=== PATIENT | female | born 1950 | race Caucasian/White ===

== ENCOUNTER → 2018-06-28 09:45 | Outpatient (CLI) | payer MEDICARE, SELFPAY ==
--- NOTE | 2018-06-28 09:45 | FLU_PTH ---
PATIENT: MAT KENYON [facility] U#:[id number] AGE/SX: 75/F ROOM: RE06/28/[address]: Dr. Lexi Garrido MD : 1950 BED: DIS: SPEC #: [id number] RECD: 06/29/18 11:32 STATUS: JERRY REQ #: [id number] PAWAN: 06/28/18 09:[address]: Lexi Garrido DEPT: CYTOLOGY RECD BY: Dov Gregory ENTERED: 06/29/18 11:33 SP TYPE: Fluid OTHR DR: Dr. Napoleon Huston DO Tissues: A - Thyroid gland, NOS B - Thyroid gland, NOS C - Thyroid gland, NOS D - Thyroid gland, NOS Procedures: Pap Stain (control) Special Stain Group II Surgery Specimen Level IV Cell Block Cytospin Fluid Cytology Other HEADER OPERATION: Ultrasound-guided fine needle aspiration bilateral thyroid PRE-OP DIAGNOSIS: Thyroid nodules TISSUE SUBMITTED: A - FNA right thyroid for cytology, B - FNA right thyroid 6 slides, C - FNA left thyroid for cytology, D - FNA left thyroid 8 slides DIAGNOSIS CYTOLOGY A. Right thyroid nodule fluid, FNA (cytospin and cell block): Rare benign follicular cells noted. B. Right thyroid nodule, FNA (smears): Consistent with benign follicular nodule. Adequate for evaluation. C. Left thyroid nodule fluid, FNA (cytospin and cell block): Consistent with benign follicular nodule with cystic changes. D. Left thyroid nodule, FNA (smears): Consistent with benign follicular nodule. Adequate for evaluation. SJ:chuy 06/30/18 COMMENT Correlation with clinical, radiologic findings and appropriate follow up are necessary. CYTOLOGY STUDY Slides are reviewed. CYTOLOGY GROSS A - Received is 100 ml of cloudy beige fluid labeled with the patient's name and and designated per the requisition as right thyroid. Submitted for cytology preparation including cell block. B - Received are six smears labeled with the patient's name and designated per the requisition as right thyroid. Submitted for staining. C - Received is 100 ml of cloudy brown fluid labeled with the patient's name and and designated per the requisition as left thyroid. Submitted for cytology preparation including cell block. D - Received are eight smears labeled with the patient's name and designated per the requisition as left thyroid. Submitted for staining. 06/29/18 TC:5 CPT: 09066 x2, 73845 x2, 85784 x2
== END ==
PROVIDERS: Family Provider Student in an Organized Health Care Education/Training Program; PCP Student in an Organized Health Care Education/Training Program; Referring Provider Surgery; Visit Provider Surgery
DX: E04.1 Nontoxic single thyroid nodule (principal)
CPT/HCPCS: 88108; 88161; 88305; 88313

== ENCOUNTER → 2018-08-06 13:00 | Outpatient (CLI) | payer MEDICARE, SELFPAY ==
[2018-07-15 13:16] VITALS: BMI 21.9
--- NOTE | 2018-08-06 13:01 | STEWCON_ITS ---
Reason For Study: DYSPNEA/SOB Stress Results Protocol: Juan Protocol Maximum Predicted HR: 150 bpm Target HR: 128 bpm % Maximum Predicted HR: 94 % DurationHeart Rate Stage (mm:ss) (bpm) BP Comment BASELINE 58 120/822CC DEFINITY STAGE 1 3:00 106 124/72 STAGE 2 3:00 141 130/722CC DEFINITY RECOVERY 72 110/78 Stress Duration: 6:00 mm:ss Maximum Stress HR: 141 bpm METS: 7 Baseline Echocardiogram Findings Stress Echo Wall motion Data Resting WM Intermediate WM Stress WM Resting Wall Motion Wall Motion Stress All segments Normal. Anterio-Basal: Hyperkinetic. Ejection Fraction 60 %. Lateral-Basal: Hyperkinetic. Posterior-Basal: Hyperkinetic. Infero-Basal: Hypokinetic. Basal inferoseptal: Hypokinetic. Basal anteroseptal: Hyperkinetic. Mid-Anterior : Hyperkinetic. Mid-Lateral : Hyperkinetic. Mid-Posterior: Hyperkinetic. Mid-Inferior: Hypokinetic. Mid-inferoseptal : Hyperkinetic. Mid-anteroseptal : Hyperkinetic. Anterior [place] : Hyperkinetic. Inferior [place] : Hyperkinetic. Lateral [place] : Hyperkinetic. Septall [place] : Hyperkinetic. Ejection Fraction 60 %. Stress Results Heart rate response: appropriate Blood pressure response: normal resting BP - appropriate response Arrhytmias: Rare PVC pretest, during exercise, and recovery Functional capacity: good Stopped secondary to: dyspnea; leg discomfort. EKG Data The baseline ECG displays normal sinus rhythm. Peak exercise ECG: NO OBVIOUS ECG CHANGES. Symptoms with Stress No c/o chest discomfort during exercise / recovery. Interpretation Summary The study was technically difficult. Contrast injection was performed. ABNORMAL (ADEQUATE) STRESS ECHOCARDIOGRAM Ordering Physician: Ricardo Saunders Referring Physician: Ricardo Saunders Performed By: Benji Dolan RCS
== END ==
PROVIDERS: Family Provider Student in an Organized Health Care Education/Training Program; PCP Student in an Organized Health Care Education/Training Program; Referring Provider Internal Medicine Cardiovascular Disease; Visit Provider Internal Medicine Cardiovascular Disease
DX: R06.02 Shortness of breath (principal); R94.31 Abnormal electrocardiogram [ECG] [EKG]
CPT/HCPCS: 93017; 93350; Q9957; A4216; C8928

== ENCOUNTER → 2018-08-19 12:24 | Outpatient (CLI) | payer MEDICARE, SELFPAY ==
[2018-07-15 13:16] VITALS: BMI 21.9
--- NOTE | 2018-08-19 12:26 | BI_ITS ---
MAMMOGRAPHY - BILATERAL SCREENING REASON FOR EXAM: Female, 68 years old. Routine annual screening examination. PERTINENT HISTORY: Non-contributory. Remote right excisional breast biopsy. TECHNIQUE: Digital bilateral breast tanesha (3D mammographic acquisition) in the CC and MLO projections. 2-D mediolateral oblique (MLO) and craniocaudad (CC) views of both breasts were obtained. CAD: Full Field Digital Mammography with Computer Added Detection was performed. COMPARISON: Comparison is made with prior study dated April 29, 2017 and April 22, 2016. FINDINGS: Breast Composition: There are scattered areas of fibroglandular density. There are no dominant masses or suspicious calcifications. No other significant abnormalities are identified. There has been no significant change since the prior study. BI/SCREENING MAMM (CAD), BILAT IMPRESSION: Stable bilateral screening mammogram. Yearly follow-up mammogram recommended. (A) ASSESSMENT CATEGORY: BIRADS Category 1: Negative. A letter regarding these results will be sent to the patient by the facility within 30 days. Approximately 10% of breast cancers are not detected by mammography. A normal mammogram should not delay biopsy of a clinically suspicious abnormality. [id number] Electronically Signed: Grant Bone MD at 14:14 EST Tel [phone], Service support ,
--- NOTE | 2018-08-19 12:29 | BD_ITS ---
STUDY: DUAL ENERGY X-RAY ABSORPTIOMETRY / DXA REASON FOR EXAM: Female, 68 years old. The patient is postmenopausal. Loss of height. TECHNIQUE: Bone Mineral Density (BMD) measurements of lumbar spine and bilateral hips were obtained. COMPARISON: Comparison is made with prior study dated November 24, 2013. FINDINGS: Lumbar Spine (L1-L4): g/cm2 (0.677) / T-score (-4.2) / Z-score (-2.5) Findings are suggestive of osteoporosis with a high fracture risk. Left Femur Total: g/cm2 (0.854) / T-score (-1.2) / Z-score (0.3) Left Femoral Neck: g/cm2 (0.757) / T-score (-2.0) / Z-score (-0.3) Right Femur Total: g/cm2 (0.795) / T-score (-1.7) / Z-score (-0.2) Right Femoral Neck: g/cm2 (0.755) / T-score (-2.0) / Z-score (-0.3) The T-Scores on the most recent prior examination were: Lumbar Spine (L1-L4): There has been improvement of bone density since the previous examination. Left Femur Total: which represents an improvement of 8.1%. Right Femur Total: which represents an improvement of 7.4%. BD/Dexa Bone Density Study IMPRESSION: The patient is considered osteoporotic as outlined below according to World Oniel Organization (WHO) criteria with a high fracture risk. There has been improvement of bone density since the previous examination. Reference Information: The T-score is the number of standard deviations above or below the standard which is normal for young adults at their peak bone mineral density. The World Health Organization (WHO) interprets the T-scores as follows: Above -1 Normal bone density Between -1 and -2.5 Osteopenia Equal to / or below -2.5 Osteoporosis As a practical clinical guideline, osteopenia may be graded as follows: Mild -1 through -1.5 Moderate -1.6 through -2.0 Severe -2.1 through -2.4 The Z-score is the number of standard deviations above or below age-matched controls. A Z-score of less than -1.5 would be considered abnormal. References: 1. NIH Osteoporosis and Related Bone Diseases http://www.osteo.org 2. International Society for Clinical Densitometry http://www.iscd.org 3. National Osteoporosis Foundation http://www.nof.org Electronically Signed: Grant Bone MD at 15:27 EST Tel [phone], Service support ,
--- NOTE | 2018-08-19 14:45 | RAD_ITS ---
STUDY: X-RAY CHEST REASON FOR EXAM: Female, 68 years old. Worsening shortness of breath TECHNIQUE: PA and lateral views of the chest. COMPARISON: None. FINDINGS: The lungs are clear and expanded. There is no demonstrated pleural abnormality. Normal size heart. Normal mediastinum and christine. Normal visualized pulmonary arteries. Normal visualized aortic arch and descending thoracic aorta. Normal visualized thoracic spine. Normal visualized ribs, clavicles, and shoulders. There is no demonstrated abnormality of the visualized soft tissue structures of the upper abdomen. RAD/Chest PA and Lateral IMPRESSION: No acute pulmonary process Electronically Signed: Bakari Mccray MD at 11:57 EST , Service support ,
[2018-08-19 14:53] LABS: Hematocrit 39.3 % (37-47); Hemoglobin 12.7 g/dl (12.0-15.0); Mean Corp Hgb Conc 32.3 g/gl (32-36); Mean Corpuscular Hgb 30.9 pg (27.0-32.0); Mean Corpuscular Volume 95.6 fL (81-99); Mean Platelet Vol. 9.4 fl (6.2-12.0); Platelet Count 292 K/mm3 (150-450); RBC Distribution Width CV 11.8 % (11.6-14.6); RBC Distribution Width SD 40.4 fl (35.1-43.9); Red Blood Count 4.11 M/mm3 (4.2-5.4); White Blood Count 4.2 K/mm3 (4.4-11.0)
[2018-08-19 14:54] LABS: Scan Indicated on CBC? Y/N NO
[2018-08-19 15:10] LABS: Prothrombin Time (Protime)PT. 12.9 SECONDS (11.7-14.9)
[2018-08-19 15:11] LABS: Partial Thromboplast Time 28.7 Seconds (24.1-36.2)
[2018-08-19 15:17] LABS: Anion Gap 8 (5-15); BUN 16 mg/dL (7-18); BUN/Creat Ratio 19.9 RATIO (10-20); Calcium,Total 8.9 mg/dL (8.5-10.1); Chloride 106 mmol/L (98-107); EST Glomerular Filtration Rate 75 mL/min (>60); Est Glom Filt Rate - Afr Amer 91 mL/min (>60); Glucose 98 mg/dL (74-106); Sodium Level 143 mmol/L (136-145)
== END ==
PROVIDERS: Internal Medicine Cardiovascular Disease; Family Provider Student in an Organized Health Care Education/Training Program; PCP Student in an Organized Health Care Education/Training Program; Referring Provider Student in an Organized Health Care Education/Training Program; Visit Provider Student in an Organized Health Care Education/Training Program
DX: M81.0 Age-related osteoporosis without current pathological fracture (principal); Z12.31 Encounter for screening mammogram for malignant neoplasm of breast; R06.02 Shortness of breath; R94.39 Abnormal result of other cardiovascular function study; R94.31 Abnormal electrocardiogram [ECG] [EKG]
CPT/HCPCS: 36415; 71046; 77063; 77067; 77080; 80048; 85027; 85610; 85730

== ENCOUNTER 2018-09-03 09:00 | Day surgery (SDC) | payer MEDICARE, SELFPAY ==
[2018-07-15 13:16] VITALS: BMI 21.9
[2018-08-19 13:42] VITALS: BMI 21.9
[2018-09-02 09:27] VITALS: BMI 22.3
[2018-09-03 11:11] LABS: Base Excess -2 mmol/L (-2 to +2); Bicarbonate 23.4 mmol/L (22-26); Blood Gas Specimen Type ART; PO2 69 mmHG (75-100); SO2 93 % (95-99); Total Carbon Dioxide 25 mmol/L; pCO2 40.5 mmHg (35-45); pH 7.37 (7.35-7.45)
[2018-09-03 11:11] LABS: Blood Gas Specimen Type VEN; VBG BASE EXCESS -2 mmol/L (-1.0-3.5); VBG Bicarbonate 24 mmol/L (22-26); VBG Oxygen Content 25 mmol/L (23-33); VBG PO2 42 mmHg (25-40); VBG SO2 74 % (50-70); VBG pCO2 43.5 mmHg (41-51); VBG pH 7.34 (7.32-7.42)
[2018-09-03 11:16] LABS: Blood Gas Specimen Type VEN; VBG BASE EXCESS -1 mmol/L (-1.0-3.5); VBG Bicarbonate 25 mmol/L (22-26); VBG Oxygen Content 26 mmol/L (23-33); VBG PO2 43 mmHg (25-40); VBG SO2 76 % (50-70); VBG pCO2 44.5 mmHg (41-51); VBG pH 7.35 (7.32-7.42)
[2018-09-03 11:16] LABS: Blood Gas Specimen Type VEN; VBG BASE EXCESS -1 mmol/L (-1.0-3.5); VBG Bicarbonate 25 mmol/L (22-26); VBG Oxygen Content 27 mmol/L (23-33); VBG PO2 35 mmHg (25-40); VBG SO2 62 % (50-70); VBG pCO2 46.7 mmHg (41-51); VBG pH 7.34 (7.32-7.42)
[2018-09-03 11:16] LABS: Blood Gas Specimen Type VEN; VBG BASE EXCESS -1 mmol/L (-1.0-3.5); VBG Bicarbonate 25 mmol/L (22-26); VBG Oxygen Content 27 mmol/L (23-33); VBG PO2 37 mmHg (25-40); VBG SO2 67 % (50-70); VBG pCO2 47.1 mmHg (41-51); VBG pH 7.34 (7.32-7.42)
[2018-09-03 11:16] LABS: Blood Gas Specimen Type VEN; VBG BASE EXCESS -1 mmol/L (-1.0-3.5); VBG Bicarbonate 25 mmol/L (22-26); VBG Oxygen Content 26 mmol/L (23-33); VBG PO2 37 mmHg (25-40); VBG SO2 66 % (50-70); VBG pH 7.34 (7.32-7.42)
--- NOTE | 2018-09-03 11:48 | CL.D_ITS ---
Patient Name: MAT KENYON Study Date: 09/03/2018 Performing: Ricardo Saunders MD Ht: 64.96 inches 165 cm : 1950 Wt: 134.48 lbs 61 kg Age: 68 Gender: female BSA: 1.67 PROCEDURE(S) PERFORMED MI41-WTK/LHC/COR/LV CLINICAL PROFILE AND INDICATIONS Indications: Suspected CAD Heart Failure: None Stress/Imaging Stress Echocardiogram: Yes Result: PositiveStress Echocardiogram: Positive Angina Classification Anginal Classification w/in 2 Weeks: CCS II CAD Presentations: Other: shortness of breath CONCLUSIONS Normal Left Ventricular End Diastolic Pressure Right heart pressures - Normal Intracardiac shunting: calculated Qp/Qs ratio of 1.3: considered non hemodynamically significant Normal LV size, wall motion,and systolic function LVEF: by LV gram 65 % Normal coronary arteries Cardiac Cath: Angiographic images: potentially c/w an AV fistula from the LCA and RCA systems to the pulmonary artery RECOMMENDATIONS DESCRIPTION OF PROCEDURE The patient arrived to the procedure lab. The risks and benefits of the procedure as well as a full d escription of our services here and current unavailability of surgical backup were fully explained to the patient and/or their significant other prior to the catheterization. The Timeout was completed, verifying the correct patient and procedure. The patient's procedural site was prepped and draped in the usual fashion. Local anesthetic was given subcutaneously to right groin region with Lidocaine 2%. Using a modified Seldinger technique, arterial access was obtained via the right femoral artery, a 4 Fr sheath was inserted Venous access was obtained via the right femoral vein, a 7Fr sheath was insert ed. Left Coronary Artery selective angiography was performed in multiple views using a 4 Fr. JL5 cath eter. Right Coronary Artery selective angiography was then performed in multiple views using a 4 Fr. 3DRC catheter. Left Ventriculography was performed in SINGLETARY projection using a 4 Fr. Pigtail catheter. LV to AO pullback pressures were then recorded. A 7Fr thermal dilution catheter was inserte d and right heart pressures were recorded, it was then advanced to PA position for cardiac outputs. T hermal dilution cardiac outputs were then recorded. O2 saturations were then obtained. Simultaneous p ressures were then recorded. The Thermal dilution catheter was then removed.The arterial sheath was p ulled and manual compression applied until hemostasis is achieved.. The venous sheath was then pulled and manual compression applied until hemostasis achieved CORONARY ANGIOGRAPHY DOMINANCE: Co- Dominant LEFT HEART ASSESSMENT Left Ventricular Ejection Fraction: by LV Gram 65 % Normal LV wall motion Normal Left Ventricular End Diastolic Pressure LVEDP: 12 mmHg RIGHT HEART ASSESSMENT Thermal CO: 3.6 Thermal CI: 2.16 Vinay CO: 4.95 Vinay CI: 2.96 PW: 22/07 9 PA: 05/05 15 RV: 24/2 7 RA: 8 5 PVR: 133 SVR: 1711 Right Heart pressures - normal Intracardiac shunting: calculated Qp/Qs ratio of 1.3: considered non hemodynamically significant LEFT MAIN: Angiographically normal LEFT ANTERIOR DECENDING ARTERY: Angiographically normal CIRCUMFLEX ARTERY: Angiographically normal RIGHT CORONARY ARTERY: Angiographically normal VALVE FINDINGS: Normal Aortic Valve function Normal Mitral Valve function AORTIC ROOT: Angiographically normal COMPLICATIONS No Complications PROCEDURE MEDICATIONS Versed 1 mg IV Versed 1 mg IV Oxygen: 2 L/min via nasal cannula Oxygen: 0 L/min via nasal cannula, turned off for RHC SUMMARY OF HEMODYNAMIC DATA Time AIR REST ECG 09:24:46 AO 112/62 (82) SA 10:24:04 LV 113/-1, 12 10:33:46 LV 113/-1, 12 10:33:52 LV 116/6, 8 10:35:08 LV 106/4, 0 10:35:15 LVp 112/2, 8 10:35:34 AOp 109/56 (78) 10:35:39 RA / (5) SV 10:45:43 RV 24/2, 7 10:46:04 PW 22/07 (9) PV 10:46:33 PA / (15) PA 10:46:48 LV 124/-10, 11 10:52:28 PW (9) 10:52:28 LV 122/-10, 9 10:52:36 PW 07/20 (9) 10:52:36 LVp 127/-10, 6 10:53:00 AOp 130/44 (85) 10:53:05 Type SV CO (l/m) CI (l/m/ HR Time AIR REST Thermal 62.10 3.60 2.16 58 09:24:46 Vinay 85.30 4.95 2.96 58 09:24:46 Label % O2 Pres/Loc Time AIR REST IVC 76 10:51:05 SVC 62 10:51:08 AO 93 PV 10:54:07 PA 74 PA 10:57:03 RA 67 SV 11:05:05 RV 66 11:05:11 Signed By Ricardo Saunders MD On 09/03/2018 11:47:35 Ricardo Saunders MD
== END 2018-09-03 15:35 | disposition home or self-care (01) ==
PROVIDERS: Family Provider Student in an Organized Health Care Education/Training Program; PCP Student in an Organized Health Care Education/Training Program; Referring Provider Internal Medicine Cardiovascular Disease; Visit Provider Internal Medicine Cardiovascular Disease
DX: R94.39 Abnormal result of other cardiovascular function study (principal); R94.31 Abnormal electrocardiogram [ECG] [EKG]; R06.02 Shortness of breath; M81.0 Age-related osteoporosis without current pathological fracture
CPT/HCPCS: 82803; 93460; 99152; 99153; J7040; Q9967; C1751; C1769; C1894

== ENCOUNTER → 2019-08-24 07:37 | Outpatient (CLI) | payer MEDICARE, SELFPAY ==
[2019-08-11 11:24] VITALS: BMI 21.9
--- NOTE | 2019-08-24 07:40 | BI_ITS ---
MAMMOGRAPHY - BILATERAL SCREENING REASON FOR EXAM: Female, 69 years old. Routine annual screening examination. PERTINENT HISTORY: Non-contributory. Remote right excisional breast biopsy. TECHNIQUE: Digital bilateral breast charan (3D mammographic acquisition) in the CC and MLO projections. 2-D mediolateral oblique (MLO) and craniocaudad (CC) views of both breasts were obtained. CAD: Full Field Digital Mammography with Computer Added Detection was performed. COMPARISON: Comparison is made with prior examination dated August 19, 2018 and April 29, 2017. FINDINGS: Breast Composition: There are scattered areas of fibroglandular density. There are no dominant masses or suspicious calcifications. No other significant abnormalities are identified. There has been no significant change since the prior study. BI/SCREEN MAMM (CAD) W/CHARAN BILAT IMPRESSION: Stable bilateral screening mammogram. Yearly follow-up mammogram recommended. (A) ASSESSMENT CATEGORY: BIRADS Category 1: Negative. A letter regarding these results will be sent to the patient by the facility within 30 days. Approximately 10% of breast cancers are not detected by mammography. A normal mammogram should not delay biopsy of a clinically suspicious abnormality. [id number] Electronically Signed: Grant Bone, at 9:36 EST , Service support ,
== END ==
PROVIDERS: Family Provider Student in an Organized Health Care Education/Training Program; PCP Student in an Organized Health Care Education/Training Program; Referring Provider Student in an Organized Health Care Education/Training Program; Visit Provider Student in an Organized Health Care Education/Training Program
DX: Z12.31 Encounter for screening mammogram for malignant neoplasm of breast (principal)
CPT/HCPCS: 77063; 77067

== ENCOUNTER → 2020-09-12 10:06 | Outpatient (CLI) | payer MEDICARE, SELFPAY ==
[2019-08-11 11:24] VITALS: BMI 21.9
--- NOTE | 2020-09-11 | FLU_PTH ---
PATIENT: MAT KENYON [facility] U#:[id number] AGE/SX: 75/F ROOM: RE09/12/[address]: Dr. Lexi Garrido MD : 1950 BED: DIS: SPEC #: [id number] RECD: 09/12/20 10:00 STATUS: JERRY REBrynn #: [id number] PAWAN: 09/11/20 00:[address]: Lexi Garrido DEPT: CYTOLOGY RECD BY: Taina Villanueva ENTERED: 09/12/20 12:40 SP TYPE: Fluid OTHR DR: Dr. Napoleon Huston DO Tissues: A - Thyroid gland, NOS B - Thyroid gland, NOS C - Thyroid gland, NOS D - Thyroid gland, NOS Procedures: Special Stain Group II Surgery Specimen Level IV Cytospin Fluid HEADER OPERATION: Bilateral thyroid FNA PRE-OP DIAGNOSIS: Multinodular goiter; thyromegaly TISSUE SUBMITTED: A - Right thyroid fluid for cytology, B - Right thyroid slides x6, C - Left thyroid fluid for cytology, D - Left thyroid slides x4 DIAGNOSIS CYTOLOGY A. Fine needle aspiration, right thyroid nodule (cytospin and cell block): Adequate for evaluation. Negative, consistent with follicular nodule with cystic change. B. Fine needle aspiration, right thyroid nodule (smears): Adequate for evaluation. Negative, consistent with colloid nodule with cystic change. C. Fine needle aspiration, left thyroid nodule (cytospin and cell block): Adequate for evaluation. Negative, consistent with benign follicular/colloid nodule with cystic change. D. Fine needle aspiration, left thyroid nodule (smears): Adequate for evaluation. Negative, consistent with benign follicular/colloid nodule. Mild chronic inflammation. AM:chuy 09/13/2020 CYTOLOGY STUDY Slides are reviewed. CYTOLOGY GROSS A - Received is 20 ml of light brown cloudy fluid labeled with the patient's name and and designated per the requisition as right thyroid. Submitted for cytology preparation including cell block. B - Received are six smears labeled with the patient's name and designated per the requisition as right thyroid. Submitted for staining. C - Received is 20 ml of dark brown cloudy fluid labeled with the patient's name and and designated per the requisition as left thyroid. Submitted for cytology preparation including cell block. D - Received are four smears labeled with the patient's name and designated per the requisition as left thyroid. Submitted for staining. / chuy 09/12/2020 TC:5 CPT: 27924 x2, 04868 x2, 71472 x2
== END ==
PROVIDERS: PCP Student in an Organized Health Care Education/Training Program; Visit Provider Surgery
DX: E04.2 Nontoxic multinodular goiter (principal)
CPT/HCPCS: 88108; 88305; 88313

== ENCOUNTER → 2020-09-13 12:32 | Outpatient (CLI) | payer MEDICARE, SELFPAY ==
[2019-08-11 11:24] VITALS: BMI 21.9
--- NOTE | 2020-09-13 12:35 | BI_ITS ---
MAMMOGRAPHY - BILATERAL SCREENING REASON FOR EXAM: Female, 70 years old. Routine annual screening examination. PERTINENT HISTORY: Non-contributory. Remote right excisional breast biopsy. TECHNIQUE: Digital bilateral breast charan (3D mammographic acquisition) in the CC and MLO projections. 2-D mediolateral oblique (MLO) and craniocaudad (CC) views of both breasts were obtained. CAD: Full Field Digital Mammography with Computer Added Detection was performed. COMPARISON: Comparison is made with prior study dated 08/24/2019 and 08/19/2018. FINDINGS: Breast Composition: There are scattered areas of fibroglandular density. There are no dominant masses or suspicious calcifications. No other significant abnormalities are identified. There has been no significant change since the prior study. BI/SCRN MAMM (CAD)W/CHARAN BILAT IMPRESSION: Stable bilateral screening mammogram. Yearly follow-up mammogram recommended. (A) ASSESSMENT CATEGORY: BIRADS Category 1: Negative. A letter regarding these results will be sent to the patient by the facility within 30 days. Approximately 10% of breast cancers are not detected by mammography. A normal mammogram should not delay biopsy of a clinically suspicious abnormality. [id number] Electronically Signed: Grant Bone MD at 13:25 EST , Service support ,
== END ==
PROVIDERS: PCP Student in an Organized Health Care Education/Training Program; Referring Provider Nurse Practitioner Family; Visit Provider Nurse Practitioner Family
DX: Z12.31 Encounter for screening mammogram for malignant neoplasm of breast (principal)
CPT/HCPCS: 77063; 77067